=== PATIENT | male | born 1985 | race Caucasian/White ===

== ENCOUNTER 2017-06-19 23:13 | Emergency (ER) | payer OTHER ==
[~2017-06-19] VITALS: Ht 185.4 cm; Wt 70.3 kg
[~2017-06-19 23:13] MED LIST: ALBU90OI INH; AMOX500 PO; AZIT250 PO; CHLO25 PO; CODGUAEL PO; DOXY100 PO; HYDACE5 PO; IBUP800 PO; LORA10 PO; PENVK500 PO; PRED20 PO; PROCODE120 PO; RXCODGUASY PO; SULTRIDS PO; Vibramycin100 MG PO; Zofran Odt4 MG SL
== END 2017-06-20 01:30 | disposition left against medical advice (07) ==
LOC: ER 23:13
DX: Z53.21 Procedure and treatment not carried out due to patient leaving prior to being seen by health care provider (principal)

== ENCOUNTER 2018-11-07 13:45 | Emergency (ER) | payer OTHER ==
[~2018-11-07] VITALS: Ht 182.9 cm; Wt 68.0 kg
[2018-11-07] MEDS ORDERED: HYDHCL25 PO (15:21)
[2018-11-07] MEDS ORDERED: Prednisone20 MG PO (15:21)
== END 2018-11-07 15:30 | disposition home or self-care (01) ==
LOC: ER 13:45
DX: L23.7 Allergic contact dermatitis due to plants, except food (principal); F17.210 Nicotine dependence, cigarettes, uncomplicated; Z88.6 Allergy status to analgesic agent; Z88.5 Allergy status to narcotic agent; Z91.013 Allergy to seafood; Z88.8 Allergy status to other drugs, medicaments and biological substances; Z91.048 Other nonmedicinal substance allergy status
CPT/HCPCS: 99282; J3301

== ENCOUNTER 2021-05-17 23:01 | Inpatient (IN) | payer OTHER ==
[~2021-05-17] VITALS: Ht 185.4 cm; Wt 84.9 kg
[~2021-05-17 23:01] MED LIST changes: +HYDHCL25 PO; +Prednisone20 MG PO
[2021-05-18 00:13] LABS: BASOPHILS ABSOLUTE AUTO 0.08 K/mm3 (0.00-0.23); BASOPHILS PERCENT AUTO 0 % (0-2); EOSINOPHILS ABSOLUTE AUTO 0.13 K/mm3 (0.00-0.68); EOSINOPHILS PERCENT AUTO 1 % (0-6); Hematocrit 44.5 % (37.0-53.0); Hemoglobin 14.6 g/dL (13.5-17.5); IMMATURE GRAN PERCENT AUTO 1 % (0-1); LYMPHOCYTES ABSOLUTE AUTO 1.19 K/mm3 (0.84-5.20); LYMPHOCYTES PERCENT AUTO 7 % (21-46); MONOCYTES ABSOLUTE AUTO 0.81 K/mm3 (0.16-1.47); MONOCYTES PERCENT AUTO 5 % (4-13); Mean Corpuscular HGB 29.5 pg (26.0-34.0); Mean Corpuscular HGB Conc 32.8 g/dL (31.5-36.5); Mean Corpuscular Volume 90 fL (80-100); Mean Platelet Volume 10.3 fL (9.1-12.4); NEUTROPHILS ABSOLUTE AUTO 15.77 K/mm3 (1.96-9.15); NEUTROPHILS PERCENT AUTO 87 % (41-73); Platelet Count 348 K/mm3 (150-400); RDW Coefficient Variation 12.5 % (11.7-14.2); RDW Standard Deviation 41.2 fL (35.1-46.3); Red Blood Cell Count 4.95 M/mm3 (4.30-5.90); White Blood Cell Count 18.08 K/mm3 (4.00-11.30)
[2021-05-18 00:26] LABS: Alanine Aminotransfer (ALT/SGP 29 U/L (12-78); Albumin, Blood 4.2 g/dL (3.4-5.0); Alk Phos 111 U/L (50-136); Anion Gap 8 mmol/L (6-16); Aspartate Aminotrans (AST/SGOT 20 U/L (12-37); Bilirubin, Total 0.3 mg/dL (0.1-1.0); Blood Urea Nitrogen 17 mg/dL (8-24); Bun/Creatinine Ratio 19.9 (12.0-20.0); CO2, Blood 22 mmol/L (21-32); Calcium, Blood 9.7 mg/dL (8.5-10.1); Chloride, Blood 107 mmol/L (98-108); Creatinine, Blood 0.86 mg/dL (0.60-1.20); Globulin, Blood 4.2 g/dL (2.2-4.0); Glomerular Filtration Rate >60 (60-); Glucose, Blood 178 mg/dL (70-99); Potassium, Blood 3.7 mmol/L (3.5-5.5); Sodium, Blood 137 mmol/L (136-145); Total Protein, Blood 8.4 g/dL (6.4-8.2)
--- NOTE | 2021-05-18 03:51 | NUR ---
SHIFT SUMMARY PT HAS BEEN CONFUSED SINCE ADMISSION. WILL BE SLEEPING ONE SECOND AND THEN AWAKE MOANING THE NEXT. MAKING BIZARRE STATEMENTS. NONSENSICAL SPEECH AT TIMES. PT VERY DIRTY, ATTEMPTED TO CLEAN ARMS AND LEGS, PT NOT TOLERATING WELL. LEFT WRIST RED AND SWOLLEN. PT HAS HX OF IV DRUG USE. PT DENIES USING FOR 2 WEEKS.
[2021-05-18 05:33] LABS: BASOPHILS ABSOLUTE AUTO 0.08 K/mm3 (0.00-0.23); BASOPHILS PERCENT AUTO 0 % (0-2); EOSINOPHILS ABSOLUTE AUTO 0.01 K/mm3 (0.00-0.68); EOSINOPHILS PERCENT AUTO 0 % (0-6); Hemoglobin 13.8 g/dL (13.5-17.5); IMMATURE GRAN ABSOLUTE AUTO 0.29 K/mm3 (0.00-0.10); IMMATURE GRAN PERCENT AUTO 1 % (0-1); LYMPHOCYTES ABSOLUTE AUTO 0.83 K/mm3 (0.84-5.20); LYMPHOCYTES PERCENT AUTO 3 % (21-46); MONOCYTES ABSOLUTE AUTO 1.73 K/mm3 (0.16-1.47); MONOCYTES PERCENT AUTO 7 % (4-13); Mean Corpuscular HGB 29.7 pg (26.0-34.0); Mean Corpuscular HGB Conc 32.9 g/dL (31.5-36.5); Mean Corpuscular Volume 90 fL (80-100); Mean Platelet Volume 9.8 fL (9.1-12.4); NEUTROPHILS PERCENT AUTO 89 % (41-73); Platelet Count 309 K/mm3 (150-400); RDW Coefficient Variation 12.5 % (11.7-14.2); RDW Standard Deviation 41.3 fL (35.1-46.3); Red Blood Cell Count 4.65 M/mm3 (4.30-5.90); White Blood Cell Count 26.64 K/mm3 (4.00-11.30)
[2021-05-18 06:02] LABS: Anion Gap 7 mmol/L (6-16); Blood Urea Nitrogen 14 mg/dL (8-24); Bun/Creatinine Ratio 16.8 (12.0-20.0); CO2, Blood 22 mmol/L (21-32); Calcium, Blood 8.8 mg/dL (8.5-10.1); Chloride, Blood 107 mmol/L (98-108); Creatinine, Blood 0.83 mg/dL (0.60-1.20); Glomerular Filtration Rate >60 (60-); Glucose, Blood 135 mg/dL (70-99); Potassium, Blood 3.8 mmol/L (3.5-5.5); Sodium, Blood 136 mmol/L (136-145)
[2021-05-18 16:06] LABS: Source, Urine Clean Catch
[2021-05-18 16:08] LABS: Appearance, Urine Clear (Clear); Bilirubin, Urine Neg (Neg); Blood, Urine Neg (Neg); Color, Urine Yellow (P-Yellow); Glucose Qualitative, Urine 1+ (Neg); Ketones, Urine Neg (Neg); Leukocyte Esterase, Urine Neg (Neg); Nitrite, Urine Neg (Neg); Protein, Urine Neg (Neg); Specific Gravity, Urine 1.015 (1.003-1.022); Urobilinogen, Urine NORM (Normal); pH, Urine 6.5 (5.0-8.0)
[2021-05-18 17:30] LABS: U Amphetamine Screen DETECTED; U Barbituate Screen Not Detected; U Benzodiazapine Screen Not Detected; U Buprenorphine Screen Not Detected; U Cannabinoids Screen Not Detected; U Cocaine Screen Not Detected; U Methadone Screen Not Detected; U Methamphetamine Screen DETECTED; U Opiates Screen Not Detected; U Oxycodone Screen Not Detected; U Phencyclidine Screen Not Detected; U Propoxyphene Screen Not Detected
--- NOTE | 2021-05-18 18:36 | NUR ---
SHIFT SUMMARY PT HAS BEEN SLEEPING MOST OF THE SHIFT. DURING THE MORNING WAS MOANING A LOT. TYLENOL GIVEN AND L ARM ELEVATED ON A PILLOW. FATHER AND SISTER CAME TO VISIT TODAY AND FATHER BROUGHT HIM A HAMBURGER AND FRIES. DIDN'T VOID UNTIL LATE THIS AFTERNOON AND VOIDED 1 LITER. HASN'T VOIDED SINCE. L HAND/WRIST REMAINS RED/HOT/SWOLLEN.
[2021-05-19 04:47] LABS: Hematocrit 44.3 % (37.0-53.0); Hemoglobin 14.3 g/dL (13.5-17.5); Mean Corpuscular HGB 29.5 pg (26.0-34.0); Mean Corpuscular HGB Conc 32.3 g/dL (31.5-36.5); Mean Corpuscular Volume 92 fL (80-100); Platelet Count 307 K/mm3 (150-400); RDW Coefficient Variation 12.8 % (11.7-14.2); RDW Standard Deviation 42.6 fL (35.1-46.3); Red Blood Cell Count 4.84 M/mm3 (4.30-5.90); White Blood Cell Count 16.53 K/mm3 (4.00-11.30)
[2021-05-19 05:52] LABS: Anion Gap 7 mmol/L (6-16); Blood Urea Nitrogen 14 mg/dL (8-24); Bun/Creatinine Ratio 18.2 (12.0-20.0); CO2, Blood 24 mmol/L (21-32); Calcium, Blood 8.9 mg/dL (8.5-10.1); Chloride, Blood 105 mmol/L (98-108); Creatinine, Blood 0.77 mg/dL (0.60-1.20); Glomerular Filtration Rate >60 (60-); Glucose, Blood 115 mg/dL (70-99); Sodium, Blood 136 mmol/L (136-145)
--- NOTE | 2021-05-19 07:44 | NUR ---
SHIFT SUMMARY: PATIENT HAS SLEPT MOST OF THE NIGHT. A&OX3 BUT FALLS ASLEEP QUICKLY. REPORTING PAIN IN LEFT WRIST 8/10. TYLENOL AND IV FENTANYL WERE GIVEN FOR PAIN WITH GOOD EFFECT. PATIENT IS INC. TO ELEVATE HAND BUT REFUSES. BED ALRM IS ON FOR NSAFETY.
--- NOTE | 2021-05-19 18:16 | NUR ---
END OF SHIFT SUMMARY: PT AOX4. LEFT HAND SWOLLEN/RED/TENDER/WARM, PT C/O PAIN, THROBBING. ELEVATED LUE, PT ASKED FOR HEAT PACK FOR PAIN. RADIAL PULSES EQUAL/STRONG. VITALS STABLE. IV PCN AND CLINDAMYACIN GIVEN THIS SHIFT. NICOTINE PATCH APPLIED ON RUE.
--- NOTE | 2021-05-20 06:28 | NUR ---
SHIFT SUMMARY: PATIENT CONTINUES TO HAVE INTERMITENT PAIN IN LEFT WRIST AND HAND. TYLENOL AND IV FENTANYL ARE EFFECT FOR PAIN CONTROL. PATIENT SHOWERED, STEADY GAIT OBSERVED. LEFT WRIST AND HAND ARE RED AND WARM TO TOUCH WITH +2 EDEMA. PATIENT IS ELEVATING EXTREMITY
--- NOTE | 2021-05-20 19:28 | NUR ---
PATIENT REPORTS WANTING TO LEAVE AMA. PATIENT GIVEN RISK VS BENEFITS OF STAYING. SIGNED AMA FORM. REPORTS WANTS TO CHECK ON SIGNIFICANT OTHER. LEFT WITH ALL PERSONAL BELONGINGS.
== END 2021-05-20 19:22 | disposition left against medical advice (07) | DRG 871 ==
LOC: ER 23:01 → MEDS 05-18 02:22
PROVIDERS: Family Medicine; Internal Medicine; Physician Assistant; ADMIT Internal Medicine
DX: A40.0 Sepsis due to streptococcus, group A (principal); G92.8 Other toxic encephalopathy; L03.114 Cellulitis of left upper limb; E87.2 Acidosis; R65.20 Severe sepsis without septic shock; F19.10 Other psychoactive substance abuse, uncomplicated; F17.210 Nicotine dependence, cigarettes, uncomplicated; Z28.21 Immunization not carried out because of patient refusal; Z88.8 Allergy status to other drugs, medicaments and biological substances; Z88.5 Allergy status to narcotic agent; Z91.013 Allergy to seafood
CPT/HCPCS: 36415; 73110; 73200; 80048; 80053; 81003; 83605; 85025; 85027; 87040; 87147; 96365; 96375; 99284-25; A9270; J0295; J0690; J1650; J2405; J2540; J2543; J2550; J3010; J3370; J7030; J7050

== ENCOUNTER 2024-09-28 23:54 | Emergency (ER) | payer OTHER ==
[~2024-09-28] VITALS: Ht 185.4 cm; Wt 81.7 kg
[~2024-09-28 23:54] MED LIST changes: +AMOCLA875 PO; +LACT; +Nicoderm Cq1 EAC1 TOP; +OSEL75CA PO
[2024-09-29 00:43] VITALS: BP 180/102
[2024-09-29] MEDS ORDERED: Trimethoprim/Sulfamethoxazole DS Tab PO ONE (04:30)
[2024-09-29] MEDS ORDERED: SULTRIDS PO (04:50)
== END 2024-09-29 04:58 | disposition home or self-care (01) ==
LOC: ER 23:54
DX: L02.414 Cutaneous abscess of left upper limb (principal); L03.114 Cellulitis of left upper limb; F17.210 Nicotine dependence, cigarettes, uncomplicated; Z88.6 Allergy status to analgesic agent; Z88.5 Allergy status to narcotic agent; Z91.041 Radiographic dye allergy status; Z91.013 Allergy to seafood
CPT/HCPCS: 10061; 99283; A9270

== ENCOUNTER → 2024-12-04 | Outpatient (CLI) | payer OTHER | LOC: LAB 14:42 → LAB SHORT 14:42 | DX: L03.115 Cellulitis of right lower limb (principal) | CPT/HCPCS: 87070; 87075; 87077; 87147; 87186; 87205 ==